=== PATIENT | female | born 1960 | race Caucasian/White ===

== ENCOUNTER 2020-03-11 10:00 | Outpatient (CLI) | payer OTHER, SELFPAY ==
--- NOTE | ~2020-03-11 | XR_ITS ---
XR_CERV2-3V_CR 03/11/2020 10:32 Indication: Neck pain and radiculopathy Procedure: 4 views of the cervical spine. Comparison: 08/29/2014 Findings: There are stable degenerative anterolisthesis at C3-4 and C4-5. No acute fracture or trauma tic malalignment. There is disc narrowing at C5-6 and C6-7. There are facet and uncinate degenerative changes at multiple levels. Lung apices are normal. No acute osseous abnormality. No prevertebral so ft tissue abnormality. Impression: 1: Moderate cervical spondylosis. Reviewed, dictated and finalized at location B. Impression: 1: Moderate cervical spondylosis.
--- NOTE | ~2020-03-11 | XR_ITS ---
XR lumbar spine 2-3V 03/11/2020 10:33 Indication: Low back pain Procedure: 3 views lumbar spine Comparison: No prior studies for comparison. Findings: Vertebral body heights are maintained. Mild levocurvature of the thoracolumbar junction. Th ere is mild disc narrowing at L2-3 and L3-4. No acute fracture or traumatic malalignment. Pedicles in tact. No evidence for spondylolisthesis. Impression: 1: Mild lumbar spondylosis with levocurvature of the thoracic lumbar spine. Reviewed, dictated and finalized at location B. Impression: 1: Mild lumbar spondylosis with levocurvature of the thoracic lumbar spine.
== END 2020-03-11 10:01 | disposition home or self-care (01) ==
LOC: ANHIMG 10:05
PROVIDERS: PCP Internal Medicine; Visit Provider Internal Medicine
DX: M47.22 Other spondylosis with radiculopathy, cervical region (principal); M47.26 Other spondylosis with radiculopathy, lumbar region; M41.86 Other forms of scoliosis, lumbar region
CPT/HCPCS: 72040; 72100

== ENCOUNTER 2020-08-11 22:11 | Emergency (ER) | payer OTHER, SELFPAY ==
--- NOTE | ~2020-08-11 | XR_ITS ---
EXAMINATION: XR chest 1V portable EXAM DATE: 08/11/2020 22:53 INDICATION: Shortness of breath. TECHNIQUE: Portable AP frontal chest x-ray was obtained. There is no prior study for comparison. FINDINGS: The lungs are clear. There are no pleural effusions. The cardiomediastinal silhouette is within normal limits. There is no pneumothorax suspected. The bones and soft tissues are unremarkab le. IMPRESSION: No acute cardiopulmonary findings. Reviewed, dictated and finalized at location A. O TECHNOLOGIST
[2020-08-11 22:13] VITALS: BP 177/87; PULSE 99; RESP 20; TEMP 36.4; O2SAT 99
--- NOTE | 2020-08-11 22:14 | ECG_ITS ---
Measurements Intervals [place] Rate: 81 P: 61 UT: 178 QRS: 68 QRSD: 98 T: 28 QT: 353 QTc: 411 Interpretive Statements SINUS RHYTHM BORDERLINE ST ABNORMALITY- ANTEROLAT/INF LEADS BASELINE ARTIFACT- I, II, AVR, AVL, AVF BORDERLINE ECG Electronically Signed On 08-12-2020 7:04:27 PENSION FUND MANAGER by Stanley Cartagena D.O.
[2020-08-11 22:36] LABS: Basophils Absolute Auto 0.1 K/mm3 (0.0-0.1); Basophils Percent Auto 0.7 % (0.2-1.2); Eosinophils Absolute Auto 0.3 K/mm3 (0-0.3); Eosinophils Percent Auto 2.6 % (0-4.4); Hematocrit 42.4 % (37.0-47.0); Hemoglobin 14.1 g/dL (12.0-15.0); Immature Granulocyte Absolute 0.03 K/mm3 (0.00-0.031); Immature Granulocyte Percent A 0.3 % (0-0.5); Lymphocytes Absolute Auto 3.48 K/mm3 (0.9-3.2); Lymphocytes Percent Auto 30.9 % (18.3-44.2); Mean Corpuscular HGB Conc 33.3 g/dl (32-36); Mean Corpuscular Hemoglobin 30.1 pg (26-34); Mean Corpuscular Volume 90.4 fl (80-100); Mean Platelet Volume 11.3 fl (7.4-10.4); Neutrophils Absolute Auto 6.4 K/mm3 (1.3-6.7); Neutrophils Percent Auto 56.5 % (45.5-73.1); Platelet Count Result 288 k/mm3 (150-375); Red Blood Count 4.69 M/mm3 (4.2-5.4); Red Cell Distribution Width 12.5 % (11.5-14.5); White Blood Count 11.3 K/mm3 (4.5-10.0)
[2020-08-11 22:47] LABS: Anion Gap 8 mmol/L (8-16); Blood Urea Nitrogen 16 mg/dL (7-17); Calcium 9.1 mg/dL (8.4-10.2); Carbon Dioxide 29 mmol/L (22-30); Chloride 104 mmol/L (98-107); Estimated CRCL calculation 82 ml/min; Estimated Glomerular Filt Rate > 60; Glucose 94 mg/dL (65-105); Potassium 3.4 mmol/L (3.4-5.0); Sodium 141 mmol/L (137-145)
--- NOTE | 2020-08-11 22:52 | ED.SOB ---
HPI - SOB/Dyspnea General Chief Complaint: Shortness of Breath/Dyspnea Stated Complaint: SOB Time Seen by Provider: 08/11/20 22:37 Source: patient Mode of arrival: ambulatory Limitations: no limitations History of Present Illness HPI Narrative: 60-year-old female She has arthritis and hypertension and takes lisinopril She was working at [employer] and felt very winded and short of breath with only modest exertion as if she had been going up stairs or climbing a mountain when in fact she was walking on flat ground. Her iPhone shows about 11,000 steps today. Did not really have any true chest pain, no diaphoresis or nausea, no dizziness She reports that she did not just want to go home and have a heart attack so came to the ER at the end of the day Currently is asymptomatic Related Data Home Medications Medication Instructions Recorded Confirmed meloxicam 15 mg tablet 15 mg PO DAILY 01/23/20 01/27/20 ascorbic acid (vitamin C) 500 mg 500 mg PO DAILY 07/08/20 tablet calcium carbonate 600 mg calcium 600 mg PO DAILY 07/08/20 (1,500 mg) tablet cholecalciferol (vitamin D3) 50 50 mcg PO DAILY 07/08/20 mcg (2,000 unit) tablet lisinopril 10 mg tablet 10 mg PO DAILY 07/08/20 magnesium 250 mg tablet 250 mg PO DAILY 07/08/20 Allergies Allergy/AdvReac Type Severity Reaction Status Date / Time Penicillins Allergy Unknown Unknown Verified 08/11/20 22:16 Review of Systems Review of Systems: All systems reviewed & are unremarkable except as noted in HPI and below Constitutional: Constitutional: Denies chills, Reports fatigue, Denies fever(s), Denies headache(s) and Denies weakness Eyes: Eyes: Reports no additional eye complaints and Denies change in vision ENT: Denies headache(s), Denies epistaxis, Denies nasal congestion and Denies sore throat Cardiovascular: Cardiovascular: Denies chest pain, Denies leg edema, Denies palpitations and Denies dyspnea Respiratory: Respiratory: Denies cough, Reports dyspnea and Denies wheezing Gastrointestinal: Gastrointestinal: Denies abdominal pain, Denies diarrhea, Denies nausea and Denies vomiting Genitourinary: Genitourinary: Denies hematuria, Denies urinary frequency and Denies dysuria Musculoskeletal: Musculoskeletal: Denies deformity, Denies arthralgias, Denies joint swelling, Denies muscle weakness and Denies numbness Integumentary/Breasts: Skin/Breast: Denies rash and Denies wounds Neurologic: Denies headache(s), Denies focal weakness, Denies numbness and Denies weakness Psychiatric: Psychiatric: Reports no additional psychiatric complaints Endocrine: Endocrine: Denies fatigue and Denies palpitations Hematologic/Lymphatic: Hematologic/Lymphatic: Denies easy bleeding and Denies easy bruising Allergic/Immunologic: Allergic/Immunologic: Denies wheezing PMFSH Past Medical History Medical History (Updated 08/12/20 @ 01:52 by Kolton Zimmer MD) Anxiety Migraines Osteoarthritis Surgical History Surgical History History of appendectomy History of bilateral tubal ligation History of section x 3 History of dilation and curettage History of total hysterectomy Family History Family History Grandparent Diabetes mellitus Cerebrovascular accident Mother Family history of malignant neoplasm Hypertension Father Hypertension Social History Social History Smoking status: Never smoker Smoking end date: 06/26/08 Alcohol intake: current Exam Const: General: no acute distress, well developed, alert and awake Nutritional Appearance: well nourished Orientation/consciousness: patient oriented x3 (alert) Limitations: no limitations HENMT: Head: normocephalic and atraumatic Ears: external ears normal General nose exam: No nasal discharge present and no epistaxis
[2020-08-11 23:49] LABS: NT Pro B Type Natriuretic Pept 97 PG/ML (5-100); Troponin I < 0.012 ng/mL (0.000-0.034)
[2020-08-11 23:58] VITALS: BP 131/74; PULSE 66; RESP 18; O2SAT 100
[2020-08-12 01:15] VITALS: BP 126/67; PULSE 74; RESP 18; O2SAT 100
[2020-08-12 02:17] VITALS: BP 133/71; PULSE 76; RESP 20; O2SAT 100
[2020-08-12 02:21] LABS: Troponin I < 0.012 ng/mL (0.000-0.034)
== END 2020-08-12 02:50 | disposition home or self-care (01) ==
PROVIDERS: Emergency Medicine; Emergency Provider Emergency Medicine; PCP Internal Medicine
DX: R06.00 Dyspnea, unspecified (principal); M19.90 Unspecified osteoarthritis, unspecified site; I10 Essential (primary) hypertension
CPT/HCPCS: 36415; 71045; 80048; 83880; 84484; 85025; 93005; 99284

== ENCOUNTER → 2020-09-18 10:15 | Outpatient (CLI) | payer OTHER, SELFPAY ==
--- NOTE | ~2020-09-18 | MM_ITS ---
EXAMINATION: MM screening [facility] BI w lisa HISTORY: Screening mammogram TECHNIQUE: Craniocaudal and mediolateral oblique 3-D tomosynthesis images were obtained and synthetic 2-D images were generated. CAD analysis was submitted and interpreted. COMPARISON: 04/04/2019, 02/07/2018, 06/17/2016 bilateral digital screening mammogram examinations BREAST PARENCHYMAL COMPOSITION: The breasts are almost entirely fatty. FINDINGS: Stable benign bilateral axillary tail lymph nodes. There is no evidence of suspicious mass, calcification, or architectural distortion to suggest malignancy in either breast. There has been no suspicious interval change. IMPRESSION: 1. No mammographic evidence of malignancy. 2. Recommend routine screening mammography in one year. BI-RADS Category 2: Benign finding(s). Reviewed, dictated and finalized at location A.
== END ==
PROVIDERS: PCP Internal Medicine; Visit Provider Obstetrics & Gynecology
DX: Z12.31 Encounter for screening mammogram for malignant neoplasm of breast (principal)
CPT/HCPCS: 77063; 77067

== ENCOUNTER → 2020-09-18 10:17 | Outpatient (CLI) | payer OTHER, SELFPAY ==
--- NOTE | ~2020-09-18 | XR_ITS ---
XR sacroiliac joints min 3V 09/18/2020 11:47 Indication: Osteoarthritis Procedure: 6 views of the sacroiliac joints Comparison: No prior studies for comparison. Findings: Sacroiliac joints are symmetric bilaterally. No significant degenerative change, ankylosis, sclerosis or erosions. Sacral foramen are symmetric. Surrounding osseous structures within normal li mits. Impression: 1: No significant abnormality of the sacroiliac joints. Reviewed, dictated and finalized at location B. Impression: 1: No significant abnormality of the sacroiliac joints.
--- NOTE | ~2020-09-18 | XR_ITS ---
EXAMINATION: HAND-KAUR ARTHRITIS 3+VIEWS DATE: 09/18/2020 11:47 INDICATION: Unspecified osteoarthritis with generalized joint pain worsening over the past year in th e bilateral hands. TECHNIQUE: Posteroanterior, lateral, and oblique views of the left and of the right hands as well as a ballcatchers view of both hands were obtained. COMPARISON: Bilateral hand radiographs dated 01/20/2017 FINDINGS: Interval progression of advanced osteoarthritis at the left third-fifth and right third and fifth pro ximal interphalangeal joints with increasing central erosions with bowing configuration and prominent marginal hypertrophic osteophytes consistent with erosive osteoarthritis. Aside from minimal seconda ry subluxation or angulation at these joint spaces the alignment is normal at both hands. No acute fr acture. Relatively stable appearance of additional significantly less severe polyarticular osteoarthr itis at both hands. This is mild to moderate at the left first carpometacarpal, left second distal in terphalangeal joints and right first interphalangeal joint and mild osteoarthritis at the right first carpometacarpal joint, at at many of the remaining metacarpophalangeal and interphalangeal joints. S mall lucency with thin sclerotic margin at the fovea of the distal left ulna which could represent ei ther a chronic erosion of the since prior study or degenerative cystic change. No other erosions iden tified. IMPRESSION: 1. Interval progression of advanced erosive osteoarthritis at the left third-fifth and right third an d fifth proximal interphalangeal joints. Reviewed, dictated and finalized at location A. IMPRESSION: 1. Interval progression of advanced erosive osteoarthritis at the left third-fi fth and right third and fifth proximal interphalangeal joints.
== END ==
PROVIDERS: PCP Internal Medicine; Visit Provider Internal Medicine
DX: M19.042 Primary osteoarthritis, left hand (principal); M19.041 Primary osteoarthritis, right hand; M18.0 Bilateral primary osteoarthritis of first carpometacarpal joints
CPT/HCPCS: 72202; 73130

== ENCOUNTER → 2020-10-07 10:28 | Outpatient (CLI) | payer OTHER, SELFPAY ==
--- NOTE | ~2020-10-07 | XR_ITS ---
XR hand RT min 3V DATE: 10/07/2020 10:53 INDICATION: Pain of second digit following smashing injury one week ago TECHNIQUE: 3 views COMPARISON: 09/18/2020 bilateral hands FINDINGS: Severe erosive osteoarthritis is again identified at the proximal interphalangeal joints of the third and fifth digits, with mild to moderate osteoarthritis at the remaining interphalangeal meghan ints and first and fourth metacarpophalangeal joints. No fracture or dislocation, periosteal reaction or bone destruction is detected. IMPRESSION: No fracture or dislocation of the right hand No significant change since 09/18/2020 Reviewed, dictated and finalized at location A.
== END ==
PROVIDERS: PCP Internal Medicine; Visit Provider Internal Medicine
DX: M79.644 Pain in right finger(s) (principal)
CPT/HCPCS: 73130

== ENCOUNTER 2021-04-30 09:46 | Outpatient (CLI) | payer OTHER, SELFPAY ==
--- NOTE | ~2021-04-30 | DEXA_ITS ---
Bone Density Report Name: Rona Jacobson Age: 60 Sex: Female Ethnicity: White Date of : 1960 Indication: postmenopausal; height loss; hysterectomy; Referring Provider: ADAL REED Study: Bone densitometry was performed. Exam Date: April 30, 2021 Accession number: [id number] Bone Density: Region BMD T-score Z-score Classification AP Spine (L1, L2) 0.929 -0.5 0.8 Normal Femoral Neck (Left) 0.945 0.9 2.1 Normal Total Hip (Left) 1.023 0.7 1.5 Normal Total Hip Bilateral Avg 0.988 0.4 1.3 Normal Femoral Neck (Right) 0.829 -0.2 1.0 Normal Total Hip (Right) 0.952 0.1 1.0 Normal World Health Organization criteria for BMD impression classify patients as: Normal (T-score at or above -1.0), Osteopenia (T-score between -1.0 and -2.5), or Osteoporosis (T-score at or below -2.5). 10-year Fracture Risk: FRAX not reported because: All T-scores for Spine Total, Hip Total, Femoral Neck at or above -1.0 Clinical Information Provided by Patient: Has used the following medications: Calcium Has the following medical conditions: Hysterectomy Patient maximum height was 62 Menopause Age: 54 Drinks caffeinated beverages Onset of menses at age 15 Number of children 3 Impression: The patient has normal bone mass. Discussion: BONE DENSITY IS ABOVE THE MINIMUM DESIRABLE LEVEL AT ALL SKELETAL SITES TESTED. This patient?s bone mineral density is above the minimum desirable level (T-score -1.0 or better) at all sites measured. The patient should follow a healthful lifestyle (good nutrition with adequate calcium and vitamin D, and appropriate weight-bearing exercise). Follow-Up: Consider repeating this study in 5 years or sooner if there is some new clinical indication. Reported by: ANGEL on 04/30/2021 10:10:00 AM. Reviewed, dictated and finalized at location AClau OTOOLE
== END 2021-04-30 09:47 | disposition home or self-care (01) ==
PROVIDERS: PCP Internal Medicine; Visit Provider Obstetrics & Gynecology
DX: Z78.0 Asymptomatic menopausal state (principal)
CPT/HCPCS: 77080

== ENCOUNTER → 2021-12-07 09:07 | Outpatient (CLI) | payer OTHER, SELFPAY ==
--- NOTE | ~2021-12-07 | MR_ITS ---
EXAMINATION: MR pituitary wo con DATE: 12/07/2021 09:43 INDICATION: Headache, unspecified. TECHNIQUE: Magnetic resonance imaging (MRI) of the brain and brainstem was performed without intraven ous contrast. COMPARISON: None. FINDINGS: There is no intracranial hemorrhage, acute infarction, or abnormal intracranial mass lesion . The pituitary is normal in size. The ventricles are normal in size. There are mucous retention cyst s in the maxillary sinuses. The mastoid air cells are normal. The orbits are normal. IMPRESSION: 1. Normal brain. Reviewed, dictated and finalized at location B. IMPRESSION: 1. Normal brain.
== END ==
PROVIDERS: PCP Internal Medicine; Visit Provider Internal Medicine Endocrinology, Diabetes & Metabolism
DX: R51.9 Headache, unspecified (principal)
CPT/HCPCS: 70551

== ENCOUNTER → 2022-01-26 12:51 | Outpatient (CLI) | payer OTHER, SELFPAY ==
--- NOTE | ~2022-01-26 | XR_ITS ---
XR hip RT min 3V w AP pelvis DATE: 01/26/2022 13:38 INDICATION: Right hip pain, osteoarthritis. TECHNIQUE: AP pelvis. AP and lateral views of right hip. COMPARISON: None FINDINGS: Mild osteoarthritis pubis. Osteopenia. Normal alignment at the sacral iliac joints and pubi c symphysis. No pelvic fracture or bone destruction is detected. Hip joint spaces are symmetric and relatively preserved. No fracture or dislocation, avascular necros is or bone destruction of the right hip is detected. IMPRESSION: Mild osteitis pubis Osteopenia No pelvic or right hip fracture or dislocation Reviewed, dictated and finalized at location B.
--- NOTE | ~2022-01-26 | XR_ITS ---
XR knee RT min 4V DATE: 01/26/2022 13:38 INDICATION: Right knee pain, osteoarthritis TECHNIQUE: [place] and standing AP, PA and lateral views COMPARISON: None FINDINGS: Small suprapatellar knee joint effusion is suggested. There is mild periarticular spurring at the patellofemoral joint and slight particular spurring of th e lateral tibial plateau. There is moderately severe medial compartment loss of height with mild particular spurring of the med ial tibial plateau. No radiopaque intra-articular loose body or chondrocalcinosis. No fracture, dislocation, periosteal reaction or bone destruction. IMPRESSION: Osteoarthritis involving the patellofemoral and particularly the medial compartment and s uggestion of mild knee joint effusion Reviewed, dictated and finalized at location B. IMPRESSION: Osteoarthritis involving the patellofemoral and particularly the me dial compartment and suggestion of mild knee joint effusion
--- NOTE | ~2022-01-26 | XR_ITS ---
XR lumbar spine min 4V DATE: 01/26/2022 13:38 INDICATION: Back pain TECHNIQUE: AP, lateral, bilateral oblique views and coned lateral lumbosacral view COMPARISON: 03/11/2020 lumbar spine FINDINGS: Osteopenia. Mild dextroscoliosis of the lumbar spine. The lumbar pedicles are intact. No fracture or bone destruction of the lumbar spine. Lumbar pedicles are intact. Moderately severe degenerative disc disease at L3-4, especially prominent on the left. Moderate degenerative disc disease at L1-2, L2-3. Minimal degenerative disc disease at L4-5 and L5-S1 . Sacroiliac joints are intact. IMPRESSION: Mild dextro scoliosis Osteopenia Multilevel degenerative disc disease, most prominent at L3-4 Reviewed, dictated and finalized at location B.
== END ==
PROVIDERS: PCP Internal Medicine; Visit Provider Internal Medicine
DX: M17.11 Unilateral primary osteoarthritis, right knee (principal); M16.11 Unilateral primary osteoarthritis, right hip; M19.09 Primary osteoarthritis, other specified site; M41.9 Scoliosis, unspecified; M47.817 Spondylosis without myelopathy or radiculopathy, lumbosacral region
CPT/HCPCS: 72110; 73502; 73564

== ENCOUNTER 2022-03-11 06:51 | Outpatient (RCR) | payer OTHER, SELFPAY | END 2022-06-09 23:59 | disposition home or self-care (01) | LOC: ANHVASCINF 06:51 | PROVIDERS: PCP Internal Medicine; Visit Provider Internal Medicine Endocrinology, Diabetes & Metabolism | DX: R94.7 Abnormal results of other endocrine function studies (principal) | CPT/HCPCS: 36415; 82533; 96372; J0834 ==

== ENCOUNTER → 2022-04-08 12:17 | Outpatient (CLI) | payer OTHER, SELFPAY ==
--- NOTE | ~2022-04-08 | MM_ITS ---
EXAMINATION: MM screening [facility] BI w lisa HISTORY: Screening TECHNIQUE: Craniocaudal and mediolateral oblique 3-D tomosynthesis images were obtained and synthetic 2-D images were generated. CAD analysis was submitted and interpreted. COMPARISON: Comparison to multiple prior studies sequentially, with oldest reviewed study dated 05/26. BREAST PARENCHYMAL COMPOSITION: There are scattered areas of fibroglandular density. FINDINGS: There is no evidence of suspicious mass, calcification, or architectural distortion to sugg est malignancy in either breast. There has been no suspicious interval change. IMPRESSION: 1. No mammographic evidence of malignancy. 2. Recommend routine screening mammography in one year. BI-RADS Category 1: Negative Reviewed, dictated and finalized at location A.
== END ==
PROVIDERS: PCP Obstetrics & Gynecology; Visit Provider Obstetrics & Gynecology
DX: Z12.31 Encounter for screening mammogram for malignant neoplasm of breast (principal)
CPT/HCPCS: 77063; 77067

== ENCOUNTER 2022-04-22 14:16 | Outpatient (CLI) | payer OTHER, SELFPAY ==
--- NOTE | ~2022-04-22 | MR_ITS ---
EXAMINATION: MR abdomen wo/w con DATE: 04/22/2022 15:17 INDICATION: Hypoglycemia. TECHNIQUE: Magnetic resonance imaging (MRI) of the abdomen was performed without and with 14 mL Multi Benitez intravenous contrast. COMPARISON: None. FINDINGS: The liver, spleen, gallbladder, pancreas, adrenal glands, and kidneys are normal. There are no dilate d loops of bowel. There is a small sliding hiatal hernia. There are no pathologically enlarged lymph nodes. There is no free intraperitoneal fluid. There is lumbar dextrocurvature and severe spondylosis . IMPRESSION: 1. Small sliding hiatal hernia. Reviewed, dictated and finalized at location A.
== END 2022-04-22 14:17 ==
PROVIDERS: PCP Internal Medicine; Visit Provider Internal Medicine Endocrinology, Diabetes & Metabolism
DX: E16.2 Hypoglycemia, unspecified (principal); K44.9 Diaphragmatic hernia without obstruction or gangrene
CPT/HCPCS: 74183; A9577

== ENCOUNTER 2023-07-12 14:45 | Outpatient (CLI) | payer OTHER, SELFPAY ==
--- NOTE | ~2023-07-12 | MM_ITS ---
EXAMINATION: MM screening [facility] BI w lisa HISTORY: Screening TECHNIQUE: Craniocaudal and mediolateral oblique 3-D tomosynthesis images were obtained and synthetic 2-D images were generated. CAD analysis was submitted and interpreted. COMPARISON: Comparison to multiple prior studies sequentially, with oldest reviewed study dated 05/27. BREAST PARENCHYMAL COMPOSITION: Breast composed of scattered areas of fibroglandular density FINDINGS: There is no evidence of suspicious mass, calcification, or architectural distortion to sugg est malignancy in either breast. There has been no suspicious interval change. IMPRESSION: 1. No mammographic evidence of malignancy. 2. Recommend routine screening mammography in one year. BI-RADS Category 1: Negative Reviewed, dictated and finalized at location A. ORATE LEARNING CONSULTANT
== END 2023-07-12 14:46 ==
LOC: MICIMG 14:46
PROVIDERS: PCP Internal Medicine; Visit Provider Internal Medicine
DX: Z12.31 Encounter for screening mammogram for malignant neoplasm of breast (principal)
CPT/HCPCS: 77063; 77067